=== PATIENT | female | born 1995 | race Caucasian/White ===

== ENCOUNTER → 2018-07-04 | Outpatient (CLI) | payer BC ==
[2018-07-04 17:54] LABS: BASO % 0.3 % (0.0-1.0); EOS % 0.2 % (0.0-3.0); HEMATOCRIT 43.3 % (36.0-47.0); HEMOGLOBIN 14.4 g/dl (12.0-15.5); IMMATURE GRANULOCYTE % 0.4 % (0-3.0); LYMPH # 2.2 10^3/uL (1.5-6.5); LYMPH % 19.1 % (24.0-44.0); MEAN CORPUSCULAR HEMOGLOBIN 28.1 pg (27.0-33.0); MEAN CORPUSCULAR HGB CONC 33.3 g/dl (32.0-36.5); MEAN CORPUSCULAR VOLUME 84.4 fl (80.0-96.0); MONO # 0.7 10^3/uL (0.0-0.8); MONO % 5.6 % (0.0-5.0); NEUTROPHILS # 8.7 10^3/uL (1.8-7.7); NEUTROPHILS % 74.4 % (36.0-66.0); PLATELET COUNT, AUTOMATED 341 10^3/uL (150-450); RED BLOOD COUNT 5.13 10^6/uL (4.00-5.40); RED CELL DISTRIBUTION WIDTH 13.1 % (11.5-14.5); WHITE BLOOD COUNT 11.7 10^3/uL (4.0-10.0)
[2018-07-04 18:24] LABS: ALBUMIN 4.6 GM/DL (3.2-5.2); ALBUMIN/GLOBULIN RATIO 1.44 (1.00-1.93); ALKALINE PHOSPHATASE 115 U/L (45-117); ALT/SGPT 19 U/L (12-78); ANION GAP 10 MEQ/L (8-16); AST/SGOT 13 U/L (7-37); BILIRUBIN,TOTAL 0.5 MG/DL (0.2-1.0); BLOOD UREA NITROGEN 8 MG/DL (7-18); CALCIUM LEVEL 9.4 MG/DL (8.5-10.1); CARBON DIOXIDE LEVEL 27 MEQ/L (21-32); CHLORIDE LEVEL 105 MEQ/L (98-107); CREATININE FOR GFR 0.62 MG/DL (0.55-1.30); GLOMERULAR FILTRATION RATE > 60.0 (>60); GLUCOSE, FASTING 89 MG/DL (70-100); POTASSIUM SERUM 3.7 MEQ/L (3.5-5.1); SODIUM LEVEL 142 MEQ/L (136-145); THYROID STIMULATING HORMONE 0.815 uIU/ML (0.358-3.740); TOTAL 25(OH) VITAMIN D 20.3 NG/ML (30.0-100.0); TOTAL PROTEIN 7.8 GM/DL (6.4-8.2)
== END ==
LOC: M LAB 17:26
DX: F32.9 Major depressive disorder, single episode, unspecified (principal)
CPT/HCPCS: 84443

== ENCOUNTER → 2020-10-14 | Outpatient (REF) | payer BC, OTHER ==
[2020-10-14 22:51] LABS: CHLAMYDIA DNA AMPLIFICATION NEGATIVE (NEGATIVE); GC DNA AMPLIFICATION NEGATIVE (NEGATIVE)
== END ==
LOC: M LAB 20:00
PROVIDERS: ATTEND Physician Assistant
DX: R30.0 Dysuria (principal)

== ENCOUNTER → 2020-11-17 | Outpatient (CLI) | payer BC | LOC: M LABSMTC 13:06 | PROVIDERS: ATTEND Anesthesiology | DX: Z01.812 Encounter for preprocedural laboratory examination (principal); Z20.822 Contact with and (suspected) exposure to COVID-19 ==

== ENCOUNTER → 2020-11-18 | Outpatient (CLI) | payer OTHER ==
[2020-11-18 18:37] LABS: APPEARANCE, URINE HAZY (CLEAR); BACTERIA, URINE AUTO 1+ (NEGATIVE); BILIRUBIN, URINE AUTO NEGATIVE (NEGATIVE); BLOOD, URINE BLOOD 2+ (NEGATIVE); COLOR, URINE YELLOW (YELLOW); GLUCOSE, URINE (UA) AUTO NEGATIVE (NEGATIVE); KETONE, URINE AUTO TRACE mg/dL (NEGATIVE); LEUKOCYTE ESTERASE, URINE AUTO NEGATIVE (NEGATIVE); MUCUS, URINE SMALL (NEGATIVE); NITRITE, URINE AUTO NEGATIVE (NEGATIVE); PROTEIN, URINE AUTO 1+ mg/dL (NEGATIVE); RBC, URINE AUTO 1 /HPF (0-3); SPECIFIC GRAVITY URINE AUTO 1.028 (1.002-1.035); SQUAMOUS EPITHELIAL CELL UR AU 9 /HPF (0-6); UROBILINOGEN, URINE AUTO 0.2 mg/dL (0.0-2.0); WBC, URINE AUTO 3 /HPF (0-3)
[2020-11-18 18:39] LABS: BASO % 0.4 % (0.0-1.0); EOS # 0.1 10^3/uL (0.0-0.5); HEMATOCRIT 43.2 % (36.0-47.0); HEMOGLOBIN 13.7 g/dl (12.0-15.5); LYMPH # 3.3 10^3/uL (1.5-5.0); LYMPH % 32.2 % (24.0-44.0); MEAN CORPUSCULAR HEMOGLOBIN 27.2 pg (27.0-33.0); MEAN CORPUSCULAR HGB CONC 31.7 g/dl (32.0-36.5); MEAN CORPUSCULAR VOLUME 85.9 fl (80.0-96.0); MONO # 0.6 10^3/uL (0.0-0.8); MONO % 5.4 % (2.0-8.0); NEUTROPHILS # 6.3 10^3/uL (1.5-8.5); NEUTROPHILS % 60.8 % (36.0-66.0); PLATELET COUNT, AUTOMATED 275 10^3/uL (150-450); RED BLOOD COUNT 5.03 10^6/uL (4.00-5.40); WHITE BLOOD COUNT 10.3 10^3/uL (4.0-10.0)
[2020-11-18 19:02] LABS: BLOOD UREA NITROGEN 11 MG/DL (7-18); CALCIUM LEVEL 9.1 MG/DL (8.5-10.1); CARBON DIOXIDE LEVEL 26 MEQ/L (21-32); CHLORIDE LEVEL 106 MEQ/L (98-107); CREATININE FOR GFR 0.69 MG/DL (0.55-1.30); GLOMERULAR FILTRATION RATE > 60.0 (>60); GLUCOSE, FASTING 78 MG/DL (70-100); POTASSIUM SERUM 3.6 MEQ/L (3.5-5.1); SODIUM LEVEL 140 MEQ/L (136-145)
[2020-11-18 19:03] LABS: ALBUMIN 4.7 GM/DL (3.2-5.2); ALT/SGPT 24 U/L (12-78); BILIRUBIN,TOTAL 0.4 MG/DL (0.2-1.0)
== END ==
LOC: M LAB 17:57
PROVIDERS: ATTEND Physician Assistant
DX: Z01.818 Encounter for other preprocedural examination (principal)

== ENCOUNTER 2020-11-22 05:56 | Observation (INO) | payer OTHER ==
[~2020-11-22] VITALS: Ht 160 cm; Wt 83.2 kg
[2020-11-22] VITALS (7 sets, daily range): BP systolic 117–130; BP diastolic 52–81
[~2020-11-22 05:56] MED LIST: HEPARIN SOD (PORCINE) 5000UNITS/ML 1ML VIAL/SYRINGE SQ ONE; LR 1,000 ML IV ONE; ceFAZolin SOD 2 GM in IV 1 EA IV ONE
[2020-11-22 06:23] LABS: HEMATOCRIT 40.5 % (36.0-47.0); HEMOGLOBIN 13.1 g/dl (12.0-15.5); MEAN CORPUSCULAR HEMOGLOBIN 27.7 pg (27.0-33.0); MEAN CORPUSCULAR HGB CONC 32.3 g/dl (32.0-36.5); MEAN CORPUSCULAR VOLUME 85.6 fl (80.0-96.0); PLATELET COUNT, AUTOMATED 289 10^3/uL (150-450); RED BLOOD COUNT 4.73 10^6/uL (4.00-5.40); WHITE BLOOD COUNT 9.4 10^3/uL (4.0-10.0)
[2020-11-22] MEDS ORDERED: BACITRACIN PWD 50,000 UNITS VIAL As Ordered ONE (06:48)
[2020-11-22] MEDS ORDERED: BUPIVACAINE LIPOSOME/PF 1.3% 20ML VIAL (13.3MG/ML)(EXPAREL)(C9290 PER1MG) As Ordered ONE (06:49)
[2020-11-22] MEDS ORDERED: dexameTHASONE 4 MG/ML 1ML VIAL (J1100 PER 1MG) As Ordered ONE (07:25)
[2020-11-22] MEDS ORDERED: propofoL 200 MG/20 ML VIAL As Ordered ONE (07:25)
[2020-11-22] MEDS ORDERED: MIDAZOLAM INJ 2MG/2ML VIAL (J2250 PER 1MG) As Ordered ONE (07:25)
[2020-11-22] MEDS ORDERED: ROCURONIUM BROMIDE 50 MG/5 ML VIAL As Ordered ONE ×3 (07:25→09:37)
[2020-11-22] MEDS ORDERED: fentaNYL 250 MCG/5 ML INJECTION (J3010) As Ordered ONE (07:25)
[2020-11-22] MEDS ORDERED: LIDOCAINE 2% 100MG/5ML SDV (FOR ANES.) As Ordered ONE (07:25)
[2020-11-22] MEDS ORDERED: LACRILUBE (AKWA TEARS) OPHTH OINT 3.5 GM As Ordered ONE (07:36)
[2020-11-22] MEDS ORDERED: ACETAMINOPHEN 1000MG 100ML IV BTL (OFIRMEV) (J0131 PER 10MG) As Ordered ONE (08:54)
[2020-11-22] MEDS ORDERED: SUGAMMADEX SODIUM 500 MG/5 ML VIAL (BRIDION) As Ordered ONE (08:54)
[2020-11-22] MEDS ORDERED: HYDROmorphone HCL 2 MG/ML 1ML VIAL (J1170) As Ordered ONE (08:54)
[2020-11-22] MEDS ORDERED: METOCLOPRAMIDE INJ 10MG/2ML VIAL (J2765 PER 1) As Ordered ONE (09:20)
[2020-11-22] MEDS ORDERED: SEVOFLURANE INHAL SOLN 250 ML BTL As Ordered ONE (09:26)
[2020-11-22] MEDS ORDERED: ONDANSETRON 4MG/2ML VIAL As Ordered ONE (11:05)
--- NOTE | 2020-11-22 11:20 | POST-OPPD ---
Postoperative Procedure Note Date Of Procedure: Nov 22, 2020 PREOPERATIVE DIAGNOSIS: Bilateral breast hypertrophy POSTOPERATIVE DIAGNOSIS: same FINDINGS: Large breasts PROCEDURE: Bilateral breast reduction SURGEON: Dr Em ANESTHESIA: General SPECIMENS: Right breast 863gm, Left breast 813 gm ESTIMATED BLOOD LOSS: 75cc REPLACED: none DRAINS: 10 mm YASMIN x 2 COMPLICATIONS: none POSTOPERATIVE CONDITION: stable LUCIO EM DO Nov 22, 2020 11:20
--- NOTE | 2020-11-22 11:21 | ROOPDOC ---
[facility] Report Of Operation Report of Operation DATE OF PROCEDURE: 11/22/20 PREOPERATIVE DIAGNOSIS: Bilateral breast hypertrophy POSTOPERATIVE DIAGNOSIS: same FINDINGS: Large breasts PROCEDURE: Bilateral breast reduction SURGEON: Dr Em ANESTHESIA: General SPECIMENS: Right breast 863gm, Left breast 813 gm ESTIMATED BLOOD LOSS: 75cc REPLACED: none DRAINS: 10 mm YASMIN x 2 COMPLICATIONS: none POSTOPERATIVE CONDITION: stable DESCRIPTION OF PROCEDURE: This is a 25-year-old female who upper back and neck pain worsened by large breasts. She wears 38 age bra. She is scheduled for bilateral breast reduction. Risks, benefits, and alternatives were discussed with the patient in detail, and she is ready to proceed. The day of surgery, she was marked in the upright position and informed consent was obtained. She measured 36-1/2 cm from sternal notch to nipple on both sides, IMF at 22 cm bilaterally. She was brought into the operating room and placed in the supine position. Preoperative antibiotics and 5000 units heparin subcutaneous were given. Sequential pneumatic stocking were placed on the lower calves. General anesthesia was induced. She was prepped and draped in the usual sterile fashion. We started our procedure on the right side. Her nipple areolar complex was outlined 45 mm in diameter, and the patient was marked according superior medial pedicle. We started our incision by scoring the nipple areolar complex area, and then dissection was continued until the inferior lateral portion of the breast was resected. Hemostasis was obtained using electrocautery. The pedicle was de-epithelialized using Echavarria scissors, good perfusion to the nipple at all times. Wound was irrigated with Bacitracin solution. We used Exparel 6 cc for local anesthesia to infiltrate in the Pectoralis muscle as well as the breast tissue. Than pedicle was turned superior to its new location at 22 cm from sternal notch. The mound was re-created using conforming 0 Vicryl sutures. Pillars were closed with interrupted 3-0 Monocryl sutures. The vertical limb was 9 cm. Excess tissue inferiorly was measured and resected, creating the horizontal scar. Nipple area complex was brought into view through the new opening and sutured in place with 3-0 and 4-0 Monocryl sutures and a 5-0 plain. A 10 mm Norris-Hurt drain was placed through the lateral portion of the horizontal incision. Then we turned our attention to the left side. Mirror procedure was carried out. Again, resection was done according to superior-medial pedicle using electrocautery and PEEK cautery. Hemostasis was obtained. The pedicle was in good viable condition. Exparel was infiltrated through the pectoralis muscle and the breast tissue 6 cc. Than pedicle was turned superior to its new location at 22 cm from sternal notch. The mound was re-created using conforming 0 Vicryl sutures. Pillars were closed with interrupted 3-0 Monocryl sutures. The vertical limb was cm. Excess tissue inferiorly was measured and resected, creating the horizontal scar. Nipple area complex was brought into view through the new opening and sutured in place with 3-0 and 4-0 Monocryl sutures and a 5-0 plain gut suture in interrupted fashion. A 10 mm Norris-Hurt drain was placed through the lateral portion of the horizontal incision. Remaining Exparel injected in the horizontal incision. Total Exparel use 20 cc. Resected tissue sent to pathology in two specimens right and left breast tissue. Right breast 863 grams, left breast 813 grams. Dressings were applied to vertical and horizontal incision: Prineo. Nipples areolar complex: Xeroform and a bulky dressing with a surgical bra. Patient was extubated in the operating room without difficulty and was transferred to the recovery room in stable condition. LUCIO EM DO Nov 22, 2020 11:21
[2020-11-22] MEDS ORDERED: PERCOCET 5MG/325MG TAB PO PRN ×2 (11:40→11:45)
[2020-11-22] MEDS ORDERED: ONDANSETRON 4MG/2ML VIAL IV PRN ×2 (11:40→11:45)
[2020-11-22] MEDS ORDERED: KETOROLAC TROMETHAMINE 10 MG TAB PO PRN (11:40)
[2020-11-22] MEDS ORDERED: ACETAMINOPHEN TAB 650MG DOSE (2X325MG) PO PRN (11:40)
[2020-11-22] MEDS ORDERED: METOCLOPRAMIDE INJ 10MG/2ML VIAL (J2765 PER 1) IV PRN (11:45)
[2020-11-22] MEDS ORDERED: fentaNYL 100 MCG/2 ML INJECTION (J3010) IV PRN (11:45)
[2020-11-22] MEDS ORDERED: LR 1,000 ML IV SCH (11:45)
[2020-11-22] MEDS: LR 1,000 ML IV SCH ×2 (13:20→21:00)
[2020-11-23 06:00] VITALS: BP 120/77
--- NOTE | 2020-11-23 06:54 | IPNPDOC ---
Subjective General Date Seen: Nov 23, 2020 Subject Chief Complaint/History The patient is a 25-year-old female admitted with a reason for visit of Bilateral Breast Hypertrophy. Patient is s/p BBR POD 1. Doing well. Pain controlled. Ambulating, tolerating diet. Current Medications Current Medications Current Medications Medications (Trade) Dose Ordered Sig/Kevin Route PRN Reason Start Time Stop Time Status Last Admin Dose Admin Acetaminophen (Tylenol Tab) 650 mg Q6H PRN PO MILD PAIN (PS 1-4) 11/22/20 11:40 11/23/20 05:05 Fentanyl Citrate (Sublimaze) 25 mcg Q5MP PRN IV PAIN LEVEL 5-10 11/22/20 11:45 11/22/20 12:45 DC Ketorolac Tromethamine (ToRADol) 10 mg Q6HP PRN PO MODERATE PAIN (PS 5-7) 11/22/20 11:40 11/27/20 11:39 Lactated Ringer's 1,000 ml @ 75 mls/hr [id number] IV 11/22/20 11:39 11/22/20 21:00 Lactated Ringer's 1,000 ml @ 100 mls/hr Q10H IV 11/22/20 11:45 11/22/20 12:45 DC Metoclopramide HCl (REGLAN INJection) 10 mg Q6HP PRN IV NAUSEA OR VOMITING 11/22/20 11:45 11/22/20 12:45 DC Ondansetron HCl (ZOFRAN INJection) 4 mg Q4H PRN IV NAUSEA OR VOMITING 11/22/20 11:40 Ondansetron HCl (ZOFRAN INJection) 4 mg Q4HP PRN IV NAUSEA OR VOMITING 11/22/20 11:45 11/22/20 12:45 DC 11/22/20 12:05 Oxycodone/ Acetaminophen (Percocet 5mg/ 325mg Tablet) 1 tab ASDIRECTED PRN PO PAIN LEVEL 1-4 11/22/20 11:45 11/22/20 12:45 DC 11/22/20 12:11 Oxycodone/ Acetaminophen (Percocet 5mg/ 325mg Tablet) 2 tab Q4HP PRN PO PAIN LEVEL 8-10 11/22/20 11:40 Allergies Coded Allergies: diphenhydramine (Verified Allergy, Unknown, itching, 11/15/20) vancomycin (Verified Allergy, Unknown, itchy, 11/15/20) Objective Physical Examination Examination GENERAL APPEARANCE:Patient seen, laying in bed, awake, alert, and oriented. Comfortable, in no acute distress. SKIN: Warm and moist. BREAST: Right and left soft, non-tender incisions intact. YASMIN drains: 38L20R cc/24 hr. NAC: Viable, warm, symmetrical, mild post-op ecchymosis, no expanding hematoma. LUNGS: Clear to auscultation bilaterally. No wheezing appreciated. HEART: No chest wall abnormalities. Regular rate and rhythm with no murmurs appreciated. ABDOMEN: Abdomen is soft, non-tender, non-distended. EXTREMITIES: No edema identified. No calf tenderness. Vital Signs Vital Signs Date Time Temp Pulse Resp B/P (MAP) Pulse Ox O2 Delivery O2 Flow Rate FiO2 11/23/20 06:00 97.9 66 18 120/77 (91) Room Air 11/22/20 22:00 99 11/22/20 11:33 3 I&Os I&O- Last 24 Hours up to 6 AM 11/23/20 06:00 Intake Total 5496 ml Output Total 1373 ml Balance 4123 ml Impression Bilateral breast hypertrophy. S/p Breast reduction POD 1. Doing well Stable for discharge. Dressing changed. Monitor YASMIN drains. F/up plastic surgery Plan / VTE VTE Prophylaxis Ordered?: Yes LUCIO EM DO Nov 23, 2020 06:54
[2020-11-23] MEDS ORDERED: PERCOCET PO (06:56)
== END 2020-11-23 12:10 | disposition home or self-care (01) ==
LOC: M SDC 05:56 → M MS5PR 05:57 → M SDC 12:50 → M MS5PR 11-23 12:10 → M SDC 11-23 12:10
PROVIDERS: ADMIT Plastic Surgery Surgery of the Hand; ATTEND Plastic Surgery Surgery of the Hand
DX: N62 Hypertrophy of breast (principal); N64.81 Ptosis of breast; F17.218 Nicotine dependence, cigarettes, with other nicotine-induced disorders; Z85.6 Personal history of leukemia; Z92.21 Personal history of antineoplastic chemotherapy; Z88.1 Allergy status to other antibiotic agents; Z88.8 Allergy status to other drugs, medicaments and biological substances; Z79.899 Other long term (current) drug therapy
CPT/HCPCS: 19318; 36415; 81025; 85027; 88305; 96360; 96361; C9290; J0131; J0690; J1100; J1170; J1644; J2250; J2405; J2765; J3010

== ENCOUNTER → 2022-01-24 | Outpatient (REF) | payer OTHER ==
[~2022-01-24] MED LIST changes: -HEPARIN SOD (PORCINE) 5000UNITS/ML 1ML VIAL/SYRINGE SQ ONE; -LR 1,000 ML IV ONE; +PERCOCET PO; -ceFAZolin SOD 2 GM in IV 1 EA IV ONE
[2022-01-24 16:56] LABS: RSV AMPLIFICATION NEGATIVE (NEGATIVE)
== END ==
LOC: M LAB REF 15:42
PROVIDERS: ATTEND Physician Assistant
DX: J09.X2 Influenza due to identified novel influenza A virus with other respiratory manifestations (principal)

== ENCOUNTER → 2023-11-25 | Outpatient (CLI) | payer OTHER ==
[2023-11-25 16:06] LABS: ALBUMIN 4.2 G/DL (3.2-5.2); ALKALINE PHOSPHATASE 99 U/L (46-116); ALT/SGPT 22 U/L (7.0-40); AST/SGOT 15 U/L (<34); BILIRUBIN,TOTAL 0.3 MG/DL (0.3-1.2); BLOOD UREA NITROGEN 10 MG/DL (9-23); CALCIUM LEVEL 9.2 MG/DL (8.5-10.1); CARBON DIOXIDE LEVEL 28 MMOL/L (20-31); CHLORIDE LEVEL 105 MMOL/L (98-107); CHOLESTEROL LEVEL 150 MG/DL (<200); CHOLESTEROL RISK RATIO 3.42 (<5); CREATININE FOR GFR 0.59 MG/DL (0.55-1.30); GLOMERULAR FILTRATION RATE > 60.0 (>60); GLUCOSE, FASTING 97 MG/DL (60-100); HDL CHOLESTEROL 43.8 MG/DL (>40); LDL CHOLESTEROL 52.4 MG/DL (<100); NON-HDL-C 106.2 MG/DL; SODIUM LEVEL 139 MMOL/L (136-145); TRIGLYCERIDES LEVEL 269 MG/DL (<150)
[2023-11-25 16:09] LABS: FOLLICLE STIMULATING HORMONE 4.8 mIU/ML; LUTEINIZING HORMONE 6.5 mIU/ML; THYROID STIMULATING HORMONE 1.071 uIU/ML (0.55-4.78)
[2023-11-25 16:10] LABS: FREE T4 0.97 NG/DL (0.89-1.76)
[2023-11-25 16:12] LABS: BASO % 0.2 % (0.0-1.0); EOS # 0.1 10^3/uL (0.0-0.5); EOS % 1.4 % (0.0-3.0); HEMOGLOBIN 12.6 g/dl (12.0-15.5); LYMPH # 2.5 10^3/uL (1.5-5.0); MEAN CORPUSCULAR HEMOGLOBIN 28.1 pg (27.0-33.0); MEAN CORPUSCULAR HGB CONC 33.2 g/dl (32.0-36.5); MEAN CORPUSCULAR VOLUME 84.6 fl (80.0-96.0); MONO # 0.5 10^3/uL (0.0-0.8); MONO % 6.2 % (2.0-8.0); NEUTROPHILS # 5.1 10^3/uL (1.5-8.5); NEUTROPHILS % 62.1 % (36.0-66.0); PLATELET COUNT, AUTOMATED 300 10^3/uL (150-450); RED BLOOD COUNT 4.49 10^6/uL (4.00-5.40); WHITE BLOOD COUNT 8.3 10^3/uL (4.0-10.0)
[2023-11-25 16:23] LABS: HEMOGLOBIN A1c 5.5 % (4.0-6.0)
== END ==
LOC: M LAB 13:56 → M PLALAB 13:56
PROVIDERS: ATTEND Physician Assistant
DX: E66.9 Obesity, unspecified (principal)